=== PATIENT | male | born 1940 ===

== ENCOUNTER → 2016-11-17 | Outpatient (CLI) | payer OTHER ==
--- NOTE | 2016-11-17 15:19 | RAD ---
PET oncologic study 11/17/2016 Technique: Blood glucose prior to injection: 125 mg/dL Scan region: Not performed due to claustrophobia. Radiopharmaceutical: F-18 FDG 14.66 mCi IV Calibration time: Start 0950 hours and finished at 1023 hours Administration time: 0956 hours on 11/17/2016 Injection site: Right antecubital Postinjection imaging delay: Not performed Clinical information: Initial staging; lung cancer Comparison: None available. Findings: Images were not acquired secondary to claustrophobia. Impression: Images not acquired secondary to claustrophobia.
== END | disposition home or self-care (01) ==
LOC: PETSC 11:11
PROVIDERS: ATTEND Internal Medicine
DX: C34.82 Malignant neoplasm of overlapping sites of left bronchus and lung (principal); F40.240 Claustrophobia
CPT/HCPCS: 78815; A9552